=== PATIENT | female | born 2000 | race Asian ===

== ENCOUNTER 2022-06-21 11:50 | Outpatient (CLI) | payer OTHER, SELFPAY | END 2022-06-21 11:51 | disposition home or self-care (01) | PROVIDERS: PCP Family Medicine; Visit Provider Family Medicine | DX: E55.9 Vitamin D deficiency, unspecified (principal) | CPT/HCPCS: 36415; 82306 ==

== ENCOUNTER 2022-06-22 07:52 | Outpatient (CLI) | payer OTHER, SELFPAY ==
[2022-06-25 09:35] LABS: PCP NEGATIVE ng/mL (<25)
[2022-06-29 14:20] LABS: Amphetamines NEGATIVE; Marijuana Metabolites NEGATIVE
[2022-06-29 14:21] LABS: Barbiturates NEGATIVE; Benzodiazepines NEGATIVE
[2022-06-29 14:22] LABS: Cocaine Metabolites NEGATIVE
== END 2022-06-22 07:53 | disposition home or self-care (01) ==
LOC: ANHGOSHLAB 07:53
PROVIDERS: PCP Family Medicine; Visit Provider Family Medicine
DX: Z51.81 Encounter for therapeutic drug level monitoring (principal); F90.1 Attention-deficit hyperactivity disorder, predominantly hyperactive type; Z79.899 Other long term (current) drug therapy
CPT/HCPCS: 80307

== ENCOUNTER 2022-08-17 16:47 | Emergency (ER) | payer OTHER, SELFPAY ==
[2022-08-17 17:05] VITALS: BP 122/65; PULSE 114; RESP 20; TEMP 37.1; O2SAT 100
--- NOTE | 2022-08-17 17:18 | ED.FEMALEGU ---
HPI - Female Genitourinary General Chief complaint: Urogenital-Female Stated complaint: UTI/ABD & BACK PAIN/CHILLS Time Seen by Provider: 08/17/22 17:30 Source: patient and RN notes reviewed Mode of arrival: ambulatory Limitations: no limitations History of Present Illness HPI Narrative: 22-year-old female presents with concern for urinary tract infection with flank pain, abdominal pain, chills. Mother reports she was treated on 07/31 with Macrobid at her primary care doctor's office for urinary tract infection, the culture reveals Macrobid was resistant so she was given a course of Bactrim. Mother reports her symptoms did not completely resolve so she had a urine recheck at her doctor's office within the last several days, and was given another course of Macrobid. The urine culture for that visit is not returned yet. Patient reports she has taken 2 doses of the Macrobid and is feeling worse. She reports she has also had upper respiratory symptoms start such as cough, runny nose and stuffy nose. She contacted her primary doctor who suggested she be seen in urgent care for she denies vomiting, abnormal vaginal discharge, constipation, diarrhea, shortness of breath, fever MD elicited complaint: UTI Related Data Allergies Allergy/AdvReac Type Severity Reaction Status Date / Time latex Allergy Intermediate Hives Verified 08/17/22 17:10 amoxicillin Allergy Unknown Unknown Verified 08/17/22 17:10 buspirone Allergy Unknown Confusion Verified 08/17/22 17:10 Penicillins Allergy Unknown Unknown Verified 08/17/22 17:10 Review of Systems Review of Systems: CONSTITUTIONAL: Reports malaise, chills CARDIOVASCULAR: Denies chest pain, palpitations, or edema. HEENT: Reports runny nose stuffy nose RESPIRATORY: Reports cough. Denies dyspnea. GASTROINTESTINAL: Reports abdominal pain. Denies nausea, vomiting, diarrhea GENITOURINARY: Reports dysuria, frequency, urgency, suprapubic pressure. Reports flank pain. Denies hematuria. SKIN: Denies rash or itching. MUSCULOSKELETAL: Denies back pain or myalgia. All systems reviewed & are unremarkable except as noted in HPI and below PMFSH Past Medical History Medical History Impacted cerumen of both ears Other specific developmental learning difficulties Social History Social History Smoking status: Never smoker Second hand tobacco smoke exposure: No Alcohol intake: never Alcohol use details: OCASSIONALLY Substance use: current Substance use type: marijuana Lack of Transportation: No Lack of Food: Never True Current Housing: I Have Housing Concerned About Future Housing: No Difficulty Paying Gas/Electric Bills: Decline to Answer Difficulty Paying for Meds: No Currently Unemployed: No Education: High School Diploma/GED Difficulty w/ Childcare or Family Care: No Gender identity (if verbalized by the patient): Female Comments At time of signature, agree with nursing past medical, surgical, social and family history. There is no relevant family history pertinent to the presenting complaint Exam Narrative: GENERAL: Nontoxic-appearing and in no acute distress. HEAD: Normocephalic. EYES: PERRLA, conjunctivae clear. NECK: Supple. No lymphadenopathy CHEST: Clear to auscultation. No respiratory distress. HEART: Regular rate and rhythm. ABDOMEN: Soft, nondistended, normal active bowel sounds, no palpable or pulsatile masses, mild left lower quadrant tenderness without guarding. Bilateral CVA tenderness SKIN: Warm, dry, no rash. NEURO: Alert and oriented x3. PSYCH: Normal mood and affect Course Course Emergency Course: Discussed limited diagnostic capability Express Care, offered transfer to emergency department for further evaluation of patient's symptoms. The patient and her mother prefer to not go to the emergency room this time, she prefers t
== END 2022-08-17 17:57 | disposition home or self-care (01) ==
PROVIDERS: Emergency Provider Nurse Practitioner; PCP Family Medicine
DX: N39.0 Urinary tract infection, site not specified (principal); J06.9 Acute upper respiratory infection, unspecified; Z20.822 Contact with and (suspected) exposure to COVID-19
CPT/HCPCS: 81003; 87086; 87426; 87804; 99213; C9803; G0463

== ENCOUNTER 2022-08-21 14:51 | Emergency (ER) | payer OTHER, SELFPAY ==
--- NOTE | ~2022-08-21 | CT_ITS ---
EXAMINATION: CT abdomen pelvis w con INDICATION: Bilateral flank pain TECHNIQUE: Computed tomographic images of the abdomen and pelvis were obtained after the administrati on of 100 cc of Omnipaque 350 intravenous contrast. The dose-length product (DLP) was 363.39 mGy-cm. Automated exposure control and iterative reconstruction technique were employed. COMPARISON: 10/12/2018 FINDINGS: Minimal dependent atelectasis is present in the lung bases. The heart size is normal. The l iver, spleen, pancreas, gallbladder, and adrenal glands are normal. The kidneys are unremarkable. No pathologically enlarged abdominal or pelvic lymph nodes are identified. There is no free intraperiton eal gas or evidence of bowel obstruction. The appendix is normal. IMPRESSION: 1. No CT correlate for the patient's symptoms. Reviewed, dictated and finalized at location F. MOBILE CLUB MEMBERSHIP SALES AGENT
[2022-08-21 14:55] VITALS: BP 136/79; PULSE 86; RESP 16; TEMP 36.9; O2SAT 100
[2022-08-21 15:57] LABS: Appearance Urine Clear (Clear); Bilirubin Urine Negative (Negative); Blood Urine Negative (Negative); Color Urine Yellow (Yellow); Glucose Urine UA Negative (Negative); Ketones Urine Negative (Negative); Leukocyte Esterase Ur 1+ LEU/UL (Negative); Nitrate Urine Negative (Negative); Protein Urine Negative (Negative); Specific Grav Ur >= 1.030 (1.001-1.035); Urobilinogen Urine 0.2 mg/dL (<2.0); pH Urine 5.5 (5.0-9.0)
[2022-08-21 16:08] LABS: RBC Urine 0-2 /hpf (0-2); Squamous Epithelial Cell Urine Few /hpf (Few)
[2022-08-21 16:20] LABS: Add Urine Microscopic? YES
--- NOTE | 2022-08-21 17:42 | ED.FEMALEGU ---
HPI - Female Genitourinary General Chief complaint: Urogenital-Female Stated complaint: back pain - being treated for UTI Time Seen by Provider: 08/21/22 17:12 History of Present Illness HPI Narrative: 22-year-old female history of bipolar presents to the emergency room for evaluation of bilateral flank pain that has been present for 2 days. Patient was seen in urgent care 2 weeks ago diagnosed with urinary tract infection. Was placed on Macrobid at that time. Urine culture shows that she has resistance to Macrobid. Follow-up with her primary care provider several days later, and was placed on Macrobid a second time mistakenly. Patient then was seen at urgent care 2 days ago for dysuria, and was started on Cipro. Urine culture show susceptibility of 0.25. Patient now complaining of bilateral flank pain. Denies fevers or tachycardia. Denies nausea or vomiting. Related Data Allergies Allergy/AdvReac Type Severity Reaction Status Date / Time latex Allergy Intermediate Hives Verified 08/21/22 17:36 amoxicillin Allergy Unknown Unknown Verified 08/21/22 17:36 buspirone Allergy Unknown Confusion Verified 08/21/22 17:36 Penicillins Allergy Unknown Unknown Verified 08/21/22 17:36 Review of Systems Review of Systems: CONSTITUTIONAL: Denies fever, chills, or sweats. EYES: Denies visual changes, redness, or discharge. ENT: Denies rhinorrhea, congestion, sore throat, or otalgia. CARDIOVASCULAR: Denies chest pain, palpitations, or edema. RESPIRATORY: Denies cough or dyspnea. GASTROINTESTINAL: Reports bilateral flank pain GENITOURINARY: Denies dysuria or hematuria. SKIN: Denies rash or itching. MUSCULOSKELETAL: Denies back pain, joint pain, or myalgia. NEUROLOGIC: Denies headache, numbness, dizziness, or weakness. PSYCHIATRIC: Denies anxiety or depression. [facility] Past Medical History Medical History Impacted cerumen of both ears Other specific developmental learning difficulties Social History Social History Smoking status: Never smoker Second hand tobacco smoke exposure: No Alcohol intake: never Alcohol use details: OCASSIONALLY Substance use: current Substance use type: marijuana Lack of Transportation: No Lack of Food: Never True Current Housing: I Have Housing Concerned About Future Housing: No Difficulty Paying Gas/Electric Bills: Decline to Answer Difficulty Paying for Meds: No Currently Unemployed: No Education: High School Diploma/GED Difficulty w/ Childcare or Family Care: No Gender identity (if verbalized by the patient): Female Exam Narrative: GENERAL: Well-appearing, well-nourished, no physical limitations, and in no acute distress. HEAD: Normocephalic, atraumatic. EYES: Conjunctivae normal, PERRLA and EOMI. CHEST: Clear to auscultation. No respiratory distress. No wheezes rales or rhonchi. HEART: Regular rate and rhythm. No murmur heard. Normal peripheral pulses. ABDOMEN: Soft, nontender, nondistended, normal active bowel sounds. : Normal external male/female exam. BACK: Bilateral CVA tenderness EXTREMITIES: Normal range of motion. No edema. No clubbing or cyanosis SKIN: Warm, dry, no rash. No noted wounds NEURO: No focal deficits. Alert and oriented x3. MAEW. CN's II-XI intact bilaterally, normal gait PSYCH: Cooperative. Normal mood and affect. Course Vital Signs Vital signs: Vital Signs Temperature 36.9 C 08/21/22 14:55 Pulse Rate 86 08/21/22 14:55 Respiratory Rate 16 08/21/22 14:55 Blood Pressure 136/79 08/21/22 14:55 Pulse Oximetry 100 08/21/22 14:55 Oxygen Delivery Room Air 08/21/22 14:55 Temperature 36.9 C 08/21/22 14:55 Pulse Rate 86 08/21/22 14:55 Respiratory Rate 16 08/21/22 14:55 Blood Pressure 136/79 08/21/22 14:55 Pulse Oximetry 100 08/21/22 14:55 Oxygen Delivery Room Air 08/21/22 14:55 CARLYN - Fema
[2022-08-21 18:00] LABS: Basophils Absolute Auto 0.1 K/mm3 (0.0-0.1); Eosinophils Absolute Auto 0.1 K/mm3 (0-0.3); Eosinophils Percent Auto 1.8 % (0-4.4); Hemoglobin 13.3 g/dL (12.0-15.0); Immature Granulocyte Absolute 0.02 K/mm3 (0.00-0.031); Immature Granulocyte Percent A 0.3 % (0-0.5); Lymphocytes Absolute Auto 3.25 K/mm3 (0.9-3.2); Lymphocytes Percent Auto 44.2 % (18.3-44.2); Mean Corpuscular HGB Conc 32.4 g/dl (32-36); Mean Corpuscular Hemoglobin 29.4 pg (26-34); Mean Corpuscular Volume 90.7 fl (80-100); Mean Platelet Volume 8.6 fl (7.4-10.4); Monocytes Absolute Auto 0.5 K/mm3 (0.1-0.6); Monocytes Percent Auto 7.1 % (2.6-8.5); Neutrophils Absolute Auto 3.4 K/mm3 (1.3-6.7); Neutrophils Percent Auto 45.6 % (45.5-73.1); Platelet Count Result 309 k/mm3 (150-375); Red Blood Count 4.52 M/mm3 (4.2-5.4); Red Cell Distribution Width 12.4 % (11.5-14.5); White Blood Count 7.4 K/mm3 (4.5-10.0)
[2022-08-21 18:22] LABS: Anion Gap 14 mmol/L (8-16); Blood Urea Nitrogen 15 mg/dL (7-17); Calcium 9.8 mg/dL (8.4-10.2); Carbon Dioxide 24 mmol/L (22-30); Chloride 104 mmol/L (98-107); Estimated Glomerular Filt Rate > 60; Glucose 101 mg/dL (65-110); Sodium 142 mmol/L (137-145)
[2022-08-21] MEDS: SODIUM CHLORIDE 0.9% IV 1,000 ML 999 ML IV CONT (18:24)
== END 2022-08-21 20:00 | disposition home or self-care (01) ==
PROVIDERS: Emergency Medicine; Emergency Provider Nurse Practitioner Family; PCP Family Medicine
DX: N39.0 Urinary tract infection, site not specified (principal)
CPT/HCPCS: 36415; 74177; 80048; 81001; 81025; 83605; 85025; 87086; 96360; 99284; J7030; Q9967

== ENCOUNTER 2022-09-24 12:43 | Outpatient (CLI) | payer OTHER, SELFPAY ==
--- NOTE | ~2022-09-24 | US_ITS ---
Renal-Bladder ultrasound Clinical History: UTI Technique: Real-time sonographic imaging of the kidneys and urinary bladder was performed. Findings: The right kidney measures 9.0 cm in length and the left kidney measures 10.0 cm. There is n o hydronephrosis or renal calculus identified. Renal cortical echogenicity is within normal limits. N o renal mass lesion is identified. The urinary bladder is moderately distended at the time of this exam. No intraluminal echoes are iden tified. No abnormal wall thickening is seen. Impression: Unremarkable ultrasound of the kidneys and urinary bladder. Reviewed, dictated and finalized at location . DESK TECHNICIAN Impression: Unremarkable ultrasound of the kidneys and urinary bladder.
== END 2022-09-24 12:44 | disposition home or self-care (01) ==
PROVIDERS: PCP Family Medicine; Visit Provider Nurse Practitioner
DX: N39.0 Urinary tract infection, site not specified (principal)
CPT/HCPCS: 76775

== ENCOUNTER 2024-01-01 09:20 | Outpatient (CLI) | payer OTHER, SELFPAY ==
--- NOTE | ~2024-01-01 | US_ITS ---
US abdomen limited INDICATION: Abnormal laboratory values PROCEDURE: Realtime right upper abdominal ultrasound. COMPARISON: CT dated 08/21/2022 FINDINGS: The pancreas is normal without focal mass or pancreatic ductal dilation. Liver echotexture is increased, consistent with fatty infiltration. There is normal directional flow in the portal ve in. The gallbladder is normal without stones, gallbladder wall thickening or pericholecystic fluid. Comm on bile duct measures 3 mm. No sonographic Langston's sign. IMPRESSION: 1: Fatty infiltration of the liver. Reviewed, dictated and finalized at location B.
== END 2024-01-01 09:21 | disposition home or self-care (01) ==
LOC: ANHIMG 09:22
PROVIDERS: PCP Family Medicine; Visit Provider Family Medicine
DX: R79.89 Other specified abnormal findings of blood chemistry (principal); K76.0 Fatty (change of) liver, not elsewhere classified
CPT/HCPCS: 76705

== ENCOUNTER 2025-08-20 20:43 | Emergency (ER) | payer OTHER, SELFPAY ==
--- OUTSIDE RECORDS SUMMARY | 2025-03-08 05:30 | XMS_ITS ---
Author Organization [facility] Address [address] [place] [address] Care Team Providers Care Acid Etch Operator Name Role Phone Nay Chen Primary Care Provider REASON FOR VISIT 4 week F/U Social History Sex Assigned At : Social History Observation Description Sex Assigned At Female Encounters Encounter Location Date Provider [address] [place] [address] 03/08/2025 Nay Chen Plan Of Treatment Next Appt Details Provider Name:Nay rowell, 08/24/2025 09:00:00 AM, [address] [place] [address], [place], [address], Progress Notes * Yoanna SHERIDAN MDOB: 0 (25 yo F)Acc No.[id number]:03/08/2025 UNLOCKED PROGRESS NOTE Patient: Yoanna HUYNH Provider: Selvin Chen, DNP, ELEVATOR CONSTRUCTOR, PMHNP- :2000 A ge:24 Y S ex:Female Date:03/08/2025 Address:[address], [facility] Structured Data:Is there a n gagan you would prefer we call you? (Nombre que prefiere usar) : No Subjective: * Chief Complaints: * 1 . 4 week F/U. * Medical History: Objective: * Vitals: Assessment: Plan: * Treatment: * * Electronic signature of Neeta Balderrama , [id number] on 08/20/2025 at 08:45 PM AUTOMOBILE OR TRUCK RENTAL DISPATCHER Sign off status: Pending * Provider: Selvin Chen DNP, ELEVATOR CONSTRUCTOR, PMHNP- Date: 0 03/08/2025 Generated for Printing/Faxing/eTransmitting on: 1 10/20/2024 08:45 PM AUTOMOBILE OR TRUCK RENTAL DISPATCHER
--- OUTSIDE RECORDS SUMMARY | 2025-05-31 05:30 | XMS_ITS ---
Author Organization [facility] Address [address] [place] [address] Care Team Providers Care Show Host Or Hostess Name Role Phone Nay Chen Primary Care Provider REASON FOR VISIT LM to R/S-mlr 2 Month Psych F/U & Med Refill Social History Sex Assigned At : Social History Observation Description Sex Assigned At Female Encounters Encounter Location Date Provider Diagnosis [address] [place] [address] 05/31/2025 Nay Chen Plan Of Treatment Next Appt Details Provider Name:Nay rowell, 08/24/2025 09:00:00 AM, [address] [place] [address] , [place], [address], Progress Notes * Yoanna SHERIDAN MDOB: 0 (25 yo F)Acc No.[id number]:05/31/2025 UNLOCKED PROGRESS NOTE Patient: Yoanna HUYNH Provider: Selvin Chen, DNP, INDUSTRIAL GAS FITTER, PMHNP-BC :2000 A ge:25 Y S ex:Female Date:05/31/2025 Address:[address] [id number] Structured Data:Is there a n gagan you would prefer we call you? (Nombre que prefiere usar) : No Subjective: * Chief Complaints: * 1 . LM to R/S-mlr 2 Month Psych F/U & Med Refill. * Medical History: Objective: * Vitals: Assessment: Plan: * Treatment: * * Electronic signature of Neeta Balderrama , [id number] on 08/20/2025 at 08:47 PM WALL MIRROR DEPARTMENT SUPERVISOR Sign off status: Pending * Provider: Selvin Chen DNP, JAROD, PMHNP- Date: 0 05/31/2025 Generated for Printing/Faxing/eTransmitting on: 1 10/20/2024 08:47 PM WALL MIRROR DEPARTMENT SUPERVISOR
--- OUTSIDE RECORDS SUMMARY | 2025-06-08 02:00 | XMS_ITS ---
Author Organization [facility] Address [address] [place] [address] Care Team Providers Care Dialysis Nurse Name Role Phone Nay Chen Primary Care Provider REASON FOR VISIT r/s from 05/31 Medications Medication SIG (Take, Route, Frequency, Duration) Notes Start Date End Date Status Vitamin D (Ergocalciferol) 60395 UNIT 1 capsule Orally every other week Active Viorele 0.15-0.02/0.01 MG (24/02) 1 tablet Orally Once a day Active hydrOXYzine Pamoate 25 MG 1 capsule Orally three times a day; Duration: 30 days As needed 02/08/2025 Active FLUoxetine HCl 20 MG 1 capsule (total 60 mg) Orally Once a day; Duration: 30 days 04/25/2025 Active FLUoxetine HCl 40 MG 1 capsule (total 60 mg) Orally Once a day; Duration: 7 days Active Methylphenidate HCl ER 20 MG 1 tablet Or ally daily; Duration: 30 days Active hydrOXYzine HCl 10 MG 1 tablet as needed Orally three times a day; Duration: 30 days Active Lurasidone HCl 80 MG 1 tablet in the park kassie with food Orally Once a day; Duration: 7 days Active Social History Sex Assigned At : Social History Observation Description Sex Assigned At Female Encounters Encounter Location Date Provider Diagnosis [facility] [place] [address] [place] [address] 06/08/2025 Nay Chen Plan Of Treatment Next Appt Details Provider Name:Nay rowell, 08/24/2025 09:00:00 AM, [address], [place], [address], Progress Notes * Yoanna SHERIDAN MDOB: 0 (25 yo F)Acc No.[id number]:06/08/2025 UNLOCKED PROGRESS NOTE Patient: Yoanna HUYNH Provider: Selvin Chen DNP, APRN, PMTRUMANP-BC :2000 A ge:25 Y S ex:Female Date:06/08/2025 Address:[address] [place], [place] [address], [facility] Structured Data:Is there a n gagan you would prefer we call you? (Nombre que prefiere usar) : No Check In:08:08 AM COMMUNITY DEVELOPMENT OFFICER Subjective: * Chief Complaints: * 1 . R/s from 05/31. * Medical History: * Medications: T aking Methylphenidate HCl ER 20 MG Tablet Extended Release 1 tablet Orally daily , Taking hydrOXYzine HCl 10 MG Tablet 1 tablet as needed Orally three times a day , Taking Vitamin D (Ergocalciferol) 29740 UNIT Capsule 1 capsule Orally every other week , Taking Viorele 0.15-0.02/0.01 MG (24/02) Tablet 1 tablet Orally Once a day , Taking hydrOXYzine Pamoate 25 MG Capsule 1 capsule Orally three times a day As needed, Taking FLUoxetine HCl 20 MG Capsule 1 capsule (total 60 mg) Orally Once a day , Taking FLUoxetine HCl 40 MG Capsule 1 capsule (total 60 mg) Orally Once a day , Taking Lurasidone HCl 80 MG Tablet 1 tablet in the evening with food Orally Once a day Objective: * Vitals: Assessment: Plan: * Treatment: * * Electronic signature of Neeta Balderrama , [id number] on 08/20/2025 at 08:46 PM COMMUNITY DEVELOPMENT OFFICER Sign off status: Pending * Provider: Selvin Chen DNP, APRN, [facility] Date: 0 06/08/2025 Generated for Printing/Faxing/eTransmitting on: 10/20/2024 08:46 PM COMMUNITY DEVELOPMENT OFFICER
--- OUTSIDE RECORDS SUMMARY | 2025-08-19 19:15 | XMS_ITS | Encounter Summary ---
Author Organization [facility] Healthcare Address [address] [place] [address] Care Team Providers Care Physical Therapist Assistant Name Role Phone Alejandrina Hernandez MD Primary Care Provider + Reason for Visit * Reason Comments blisters Pain and blisters on hands and feet Encounter Details Date Type Department Care Team (Late st Contact Info) Description 08/19/2025 7:15 PM ELASTIC ATTACHER OVERLOCK Office Visit [facility] at [address] [address] Adeline Cisneros, [place] [address] [place] [address] [address] [place] [address] Rash and nonspecific skin eruption (Primary Dx) Social History Tobacco Use Types Packs/Day Years Used Date Smoking Tobacco: Never Assessed Comments Unknown Sex and Gender Information Value Date Recorded Sex Assigned at Not on file Legal Sex Female 7:33 PM ELASTIC ATTACHER OVERLOCK Gender Identity Not on file Sexual Orientation Not on file documented as of this encounter Last Filed Vital Signs Vital Sign Reading Time Taken Comments Blood Pressure 122/84 08/19/2025 5:23 PM ELASTIC ATTACHER OVERLOCK Pulse 76 08/19/2025 5:23 PM ELASTIC ATTACHER OVERLOCK Temperature 36.8 C (98.2 F) 08/19/2025 5:23 PM ELASTIC ATTACHER OVERLOCK Respiratory Rate 20 08/19/2025 5:23 PM ELASTIC ATTACHER OVERLOCK Oxygen Saturation 99% 08/19/2025 5:23 PM ELASTIC ATTACHER OVERLOCK Inhaled Oxygen Concentration - - Weight 64.9 kg (143 lb 1.6 oz) 08/19/2025 5:23 P M ELASTIC ATTACHER OVERLOCK Height - - Body Mass Index - - documented in this encounter Functional Status documented as of this encounter Patient Instructions * Patient Instructions* Adeline Cisneros NP - 08/19/2025 7:15 PM ELASTIC ATTACHER OVERLOCK If you have no improvement or worsening of your symptoms, please follow up with your Primary Care Provider, [facility] and or Emergency Room. I strive to provide you with EXCELLENT service. You may receive a survey after your visit today. If you cannot rate your experience as EXCELLENT, please let us know how we can improve and better meet your needs. Thank you for choosing [facility]! It was my pleasure to see you today, I hope you feel better soon! Adeline Cisneros LASTING MACHINE OPERATOR TIC ATTACHER OVERLOCK * Attachments The following attachments cannot be sent through Care Everywhere. * Acute Rash (AfterCare(R) Instructions(ER/ED)) (Persian) documented in this encounter Ordered Prescriptions Prescription Sig Dispense Quantity Refills Last Filled Start Date End Date triamcinolone (KENALOG) 0.1 % creamIndications:R ramez and nonspecific skin eruption Apply to affected area 1-2 times daily as needed. Avoid face and groin. 30 g 08/19/2025 documented in this encounter Plan of Treatment Not on file documented as of this encounter Visit Diagnoses Diagnosis Rash and nonspecific skin eruption- Primary Rash and other nonspecific skin eruption documented in this encounter Historical Medications * This list may reflect changes made after this encounter. FLUoxetine (PROzac) 40 mg capsule Take 1 capsule (40 mg total) by mouth daily 08/08/2025 FLUoxetine (PROzac) 20 mg capsule Take 1 capsule (20 mg total) by mouth daily 08/10/2025 hydrOXYzine (ATARAX) 10 mg tablet Take 1 tablet (10 mg total) by mouth 3 (three) times a day as needed 01/24/2024 lurasidone (LATUDA) 80 mg tablet TAKE 1 TABLET BY MOUTH DAILY IN THE EVENING WITH FOOD 08/09/2025 methylphenidate ER (METADATE ER) 20 mg CR tablet Take 1 tablet (20 mg total) by mouth every morning sertraline (ZOLOFT) 100 mg tablet Take 1.5 tablets (150 mg total) by mouth daily 07/24/2023 ergocalciferol (VITAMIN D) 50,000 unit capsule 08/01/2023 Volnea, 28, 0.15-0.02 mgx21 /0.01 mg x 5 per tablet Take 1 tablet by mouth daily ARIPiprazole (ABILIFY) 5 mg tablet 2 tablets (10 mg total) 05/28/2023 added in this encounter Care Teams Physical Therapist Assistant Relationship Specialty Start Date End Date Alejandrina Hernandez MD [facility] [address] [place] [id number] PCP - General Family Medicine 08/19/25 documented as of this encounter
--- OUTSIDE RECORDS SUMMARY | 2025-08-20 20:46 | XMS_ITS | Patient Health Record ---
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 medications & other aspects of the treatment program. Agrees to return sooner if symptoms worsen or suicidal or homicidal ideations occur. Labs monitored by PCP. 12/08/2024 Medication management (ICD-10 - Z79.899) May self-administer medications or be administered own oral medications per [place] protocols. Provided informed consent with understanding of side effects, adverse effects, risks and benefits as well as alternative treatments as previously discussed and with the above recommended medications & other aspects of the treatment program. Agrees to return sooner if symptoms worsen or suicidal or homicidal ideations occur. Labs monitored by PCP. 01/04/2025 Medication management (ICD-10 - Z79.899) May self-administer medications or be administered own oral medications per [place] protocols. Provided informed consent with understanding of side effects, adverse effects, risks and benefits as well as alternative treatments as previously discussed and with the above recommended medications & other aspects of the treatment program. Agrees to return sooner if symptoms worsen or suicidal or homicidal ideations occur. Labs monitored by PCP. 12/21/2024 Medication management (ICD-10 - Z79.899) May self-administer medications or be administered own oral medications per [place] protocols. Provided informed consent with understanding of side effects, adverse effects, risks and benefits as well as alternative treatments as previously discussed and with the above recommended medications & other aspects of the treatment program. Agrees to return sooner if symptoms worsen or suicidal or homicidal ideations occur. Labs monitored by PCP. 01/18/2025 Bruxism (ICD-10 - F45.8) 01/28/2025 Bruxism (ICD-10 - F45.8) 01/28/2025 Medication management (ICD-10 - Z79.899) May self-administer medications or be administered own oral medications per [place] protocols. Provided informed consent with understanding of side effects, adverse effects, risks and benefits as well as alternative treatments as previously discussed and with the above recommended medications & other aspects of the treatment program. Agrees to return sooner if symptoms worsen or suicidal or homicidal ideations occur. Labs monitored by PCP. 01/18/2025 Medication management (ICD-10 - Z79.899) May self-administer medications or be administered own oral medications per [place] protocols. Provided informed consent with understanding of side effects, adverse effects, risks and benefits as well as alternative treatments as previously discussed and with the above recommended medications & other aspects of the treatment program. Agrees to return sooner if symptoms worsen or suicidal or homicidal ideations occur. Labs monitored by PCP. Plan Of Treatment Next Appt Details Provider Name:Nay Ange Mcdonough ar, 08/24/2025 09:00:00 AM, [address] [facility] [address], [place], [address], Insurance Providers Payer Name Payer Address Payer Phone Subscriber Number Group Number Insured Name Patient Relationship to Insured Coverage Start Date Coverage End Date [place] [employer] [facility] Att Claims Department [address] [place] [address] [phone] [id number] Yoanna Garcia Self - patient is the insured 4 [employer] Attn Claims Department [address] [place] [address] [phone] [id number] Yoanna Garcia Self - patient is the insured 4 Medical (General) History Medical History History ICD Code pre-diabetes mildly elevated liver enzymes Bruxism (resolved 03/10/2025) undefined Surgical History Surgery Date(Month/Year) None Hospitalization History Reason Date(Month/Year) None
--- OUTSIDE RECORDS SUMMARY | 2025-08-20 20:47 | XMS_ITS | Clinical Summary ---
Author Organization [facility] Address [address] [place] [address] Phone Care Team Providers Care Puller Over Name Role Phone Alejandrina Hernandez MD Primary Care Provider [phone] Christopher Cha APRN, ACCOUNT SERVICES SPECIALIST Unavailable [phone] Allergies Active Allergy Reactions Criticality Noted Date Comments Penicillins Hives 08/19/2023 Medications ARIPiprazole (ABILIFY) 5 MG Tablet 10 mg. 05/28/2023 Active Viorele 0.15-0.02/0.01 MG (24/02) Tablet Take 1 Tablet by mouth daily. 07/22/2023 Active ergocalciferol (VITAMIN D) 96891 UNIT Capsule 08/01/2023 Active methylphenidate (METADATE ER) 20 MG Tablet Controlled Release Take 20 mg by mouth 2 times daily. 07/22/2023 Active sertraline (ZOLOFT) 100 MG Tablet TAKE 1 AND 1/2 TABLETS BY MOUTH DAILY 07/24/2023 Active PreviDent 5000 Booster Plus 1.1 % Paste BRUSH TEETH DIRECTED BY DOCTOR 07/11/2023 Active hydrOXYzine (ATARAX) 10 MG Tablet TAKE 1 TABLET BY MOUTH THREE TIMES DAILY NEEDED 01/24/2024 Active Social History Tobacco Use Types Packs/Day Years Used Date Smoking Tobacco: Never Smokeless Tobacco: Never Tobacco Cessation:Counseling Given: Not Answered Alcohol Use Standard Drinks/Week Comments Never 0 (1 standard drink = 0.6 oz pur e alcohol) Sexually Active Control Partners Comments Not Currently Comments No Sex and Gender Information Value Date Recorded Sex Assigned at Not on file Legal Sex Female 2:53 PM CDT Gender Identity Not on file Sexual Orientation Not on file Last Filed Vital Signs Vital Sign Reading Time Taken Comments Blood Pressure 119/87 10/13/2024 2:29 PM HVAC MANAGER Pulse 114 10/13/2024 2:29 PM HVAC MANAGER Temperature 36.8 C (98.2 F) 03/10/2024 1:11 PM CDT Respiratory Rate 16 10/13/2024 2:29 PM HVAC MANAGER Oxygen Saturation 98% 10/13/2024 2:29 PM HVAC MANAGER Inhaled Oxygen Concentration - - Weight 78.3 kg (172 lb 9.6 oz) 10/13/2024 2:29 P M HVAC MANAGER Height 149.9 cm (4' 11) 10/13/2024 2:29 PM HVAC MANAGER Body Mass Index 34.86 10/13/2024 2:29 PM HVAC MANAGER Plan of Treatment Health Maintenance Due Date Last Done Comments Hepatitis C Virus (HCV) Screening 2000 TdaP Immunization 2000 Human Papillomavirus (HPV) Immunization (1 - 3-dose series) 2015 Hepatitis B Immunization (1 of 3 - 19+ 3-dose series) 2019 Pap Smear 2021 Influenza Immunization (#1) 2025 SARS-COV-2 Immunization (2024- season) 2025 Respiratory Syncytial Virus (RSV) Immunization (Adult) (1 - 1-dose 75+ series) 2075 Meningococcal Immunization (ACWY) Aged Out No longer eligible based on patient's age to complete this topic Pneumococcal Immunization Combined Aged Out No longer eligible based on patient's age to complete this topic Rotavirus Immunization Aged Out No lo nger eligible based on patient's age to complete this topic Insurance [address], [id number] [id number] MEDICAID [employer] Care Teams Puller Over Relationship Specialty Start Date End Date Alejandrina Hernandez MD [facility] [address] [place] [address] PCP - General Family Medicine 08/19/23 Christopher Cha, SPACE CONTROL SUPERVISOR, ACCOUNT SERVICES SPECIALIST [address] [place] [address] Nurse Practitioner Advanced Practice Nurse 08/19/23
--- OUTSIDE RECORDS SUMMARY | 2025-08-20 20:47 | XMS_ITS | Clinical Summary ---
Author Organization [facility] [address] Address [address] [place] [address] Care Team Providers Care Customer Support Consultant Name Role Phone Alejandrina Hernandez MD Primary Care Provider + Allergies Active Allergy Reactions Criticality Noted Date Comments Penicillins Hives Medium 08/19/2023 Medications ARIPiprazole (ABILIFY) 5 mg tablet 2 tablets (10 mg total) 3 Active Volnea, 28, 0.15-0.02 mgx21 /0.01 mg x 5 per tablet Take 1 tablet by mouth daily Active ergocalciferol (VITAMIN D) 50,000 unit capsule 3 Active sertraline (ZOLOFT) 100 mg tablet Take 1.5 tablets (150 mg total) by mouth daily 3 Active methylphenidate ER (METADATE ER) 20 mg CR tablet Take 1 tablet (20 mg total) by mouth every morning Active lurasidone (LATUDA) 80 mg tablet TAKE 1 TABLET BY MOUTH DAILY IN THE EVENING WITH FOOD 5 Active hydrOXYzine (ATARAX) 10 mg tablet Take 1 tablet (10 mg total) by mouth 3 (three) times a day as needed 4 Active FLUoxetine (PROzac) 20 mg capsule Take 1 capsule (20 mg total) by mouth daily 5 Active FLUoxetine (PROzac) 40 mg capsule Take 1 capsule (40 mg total) by mouth daily 5 Active triamcinolone (KENALOG) 0.1 % creamIndications :Rash and nonspecific skin eruption Apply to affected area 1-2 times daily as needed. Avoid face and groin. 30 g 5 08/19/20 26 Active Active Problems No known active problems Encounters Date Type Department Care Team Description 08/19/2025 7:15 PM WELT TRIMMING MACHINE OPERATOR Office Visit [facility] at [address] [address] Adeline Cisneros NP Rash and nonspecific skin eruption (Primary Dx) from Last 3 Months Social History Tobacco Use Types Packs/Day Years Used Date Smoking Tobacco: Never Assessed Comments Unknown Sex and Gender Information Value Date Recorded Sex Assigned at Not on file Legal Sex Female 7:33 PM WELT TRIMMING MACHINE OPERATOR Gender Identity Not on file Sexual Orientation Not on file Last Filed Vital Signs Vital Sign Reading Time Taken Comments Blood Pressure 122/84 08/19/2025 5:23 PM WELT TRIMMING MACHINE OPERATOR Pulse 76 08/19/2025 5:23 PM WELT TRIMMING MACHINE OPERATOR Temperature 36.8 C (98.2 F) 08/19/2025 5:23 PM WELT TRIMMING MACHINE OPERATOR Respiratory Rate 20 08/19/2025 5:23 PM WELT TRIMMING MACHINE OPERATOR Oxygen Saturation 99% 08/19/2025 5:23 PM WELT TRIMMING MACHINE OPERATOR Inhaled Oxygen Concentration - - Weight 64.9 kg (143 lb 1.6 oz) 08/19/2025 5:23 P M WELT TRIMMING MACHINE OPERATOR Height - - Body Mass Index - - Plan of Treatment Health Maintenance Due Date Last Done Comments Cervical Cancer Screening 2000 Depression Screening 2000 Hepatitis C Screening 2000 DTaP/Tdap/Td Vaccine (1 - Tdap) 2011 Varicella Vaccines (1 of 2 - 13+ 2-dose series) 2013 HPV Vaccines (1 - 3-dose series) 2015 Hepatitis B Screening 2018 Regular Well Visit/Exam 18-64 2018 Influenza Vaccine (#1) 2025 Pneumococcal vaccine <65 Aged Out No longer eligible based on patient's age to complete this topic Insurance [facility] Care Teams Customer Support Consultant Relationship Specialty Start Date End Date Alejandrina Hernandez MD [address] [facility] [address] [address] [place] [address] [phone] PCP - General Family Medicine 08/19/25
--- OUTSIDE RECORDS SUMMARY | 2025-08-20 20:47 | XMS_ITS | Patient Health Record ---
Author Organization [facility] Address [address] [place] [address] Care Team Providers Care Server Programmer Name Role Phone David Amaya Unavailable [phone] Reason For Referral No Information Medications Medication SIG (Take, Route, Frequency, Duration) Notes Start Date End Date Status Cholecalciferol 1.25 MG (50586 UT) Capsule Oral 03/28/2022 Active ARIPiprazole 5 MG Tablet Oral 03/28/2022 Active Methylphenidate HCl ER 20 MG Tablet Extended Release Oral 03/28/2022 Acti ve Ergocalciferol 1.25 MG (5000 0 UT) Capsule Oral 03/28/2022 Active Zoloft 100 MG Tablet Oral 03/28/2022 Active Cyclobenzaprine HCl 5 MG Tablet Oral 03/28/2022 Active Sertraline HCl 100 MG Tablet Oral 03/28/2022 Active Viorele 0.15-0.02/0.01 MG (/5) Tablet Oral 03/28/2022 Active Immunizations Vaccine Route Administration Date Status Comme nts Meningococcal MCV4P Unknown 04/08/2018 Administered Novel [id number], preservative free Unknown 10/09/2018 Administered Pfizer Biontech Covid-19 Vac cine 2nd dose Unknown 01/03/2021 Administered Pfizer Biontech Covid-19 Vac cine 2nd dose Unknown 01/26/2021 Administered Pfizer Biontech Covid-19 Vac cine 2nd dose Unknown 10/10/2021 Administered Social History Social History Additional Details Category Social Info Options Details Migrated Social History Migrated Social History Alcohol Intake: None 01/03/2022,Tobacco Years: Never smoker 05/26/2021 Plan Of Treatment No Information Insurance Providers Payer Name Payer Address Payer Phone Subscriber Number Group Number Insured Name Patient Relationship to Insured Coverage Start Date Coverage End Date [facility] [address] [place] [address] [id number] JILLIAN SHERIDAN Child - Insured has Financial Responsibility
[2025-08-20 20:56] VITALS: BP 127/73; PULSE 74; RESP 14; TEMP 36.8; O2SAT 100
--- NOTE | 2025-08-20 22:00 | ED.GENADULT ---
HPI - General Adult General Chief complaint: Unspecified Stated complaint: RASH Time Seen by Provider: 08/20/25 20:48 History of Present Illness HPI narrative: Patient is a 25-year-old female who presents to the ER with a rash to her hands and feet. She reports approximately 1 week ago she started feeling feverish and ill. Patient reports on Saturday she started noticing a rash to her hands and feet. She reports rash is so painful that it hurts to stand. Patient denies any sores in her mouth, difficulty swallowing, excessive swelling, drainage from the sites. She endorses a history of mental health issues for which she is medicated. Related Data Home Medications ?Medication ?Instructions ?Recorded ?Confirmed ?Last Taken ?Type loratadine 10 mg tablet (Claritin) 10 mg PO DAILY 06/16/24 07/14/25 Unknown History hydroxyzine HCl 10 mg tablet 10 mg PO TID PRN 12/16/24 07/14/25 Unknown History fluoxetine 20 mg capsule 20 mg PO 02/04/25 07/14/25 Unknown History fluoxetine 40 mg capsule 40 mg PO 06/16/25 07/14/25 Unknown History hydroxyzine pamoate 25 mg capsule 25 mg PO 06/16/25 07/14/25 Unknown History lurasidone 80 mg tablet 80 mg PO 06/16/25 07/14/25 Unknown History Allergies Allergy/AdvReac Type Severity Reaction Status Date / Time amoxicillin Allergy Unknown Unknown Verified 08/20/25 22:21 buspirone Allergy Unknown Confusion Verified 08/20/25 22:21 Penicillins Allergy Unknown Unknown Verified 08/20/25 22:21 metformin AdvReac Severe Diarrhea Verified 08/20/25 22:21 prednisone AdvReac Mild Itching Verified 08/20/25 22:21 Review of Systems Review of Systems: All systems reviewed & are unremarkable except as noted in HPI and below PMFSH Past Medical History Medical History Hx of chlamydia infection Hematuria Other specific developmental learning difficulties Social History Social History Smoking status: Never smoker Second hand tobacco smoke exposure: No Alcohol intake: current Drinks per week: 2 Alcohol use details: weekends Substance use: former Substance use type: marijuana Do You Feel Safe in your Home?: Yes Lack of Transportation: No Lack of Food: Never True Current Housing: I Have Housing Concerned About Future Housing: No Difficulty Paying Gas/Electric Bills: Decline to Answer Difficulty Paying for Meds: No Currently Unemployed: No Education: High School Diploma/GED Difficulty w/ Childcare or Family Care: No Living arrangements: with family Occupation/Education: occupation Gender identity (if verbalized by the patient): Female Exam Narrative: GENERAL: Well appearing, well-nourished, non-toxic, in no acute distress. HEAD: Normocephalic, atraumatic. 4-5 red lesions to the roof of pt's mouth. NECK: Supple. No adenopathy, no masses. RESPIRATORY: Airway patent, respirations nonlabored. Clear to auscultation bilaterally, no rales, rhonchi, wheezing. CARDIOVASCULAR: Regular rate and rhythm without murmurs, rubs, or gallops. Peripheral pulses 2+ and equal bilaterally. ABDOMINAL: Soft, nontender, nondistended, no hepatosplenomegaly. Normoactive BS. MUSCULOSKELETAL: Moves all extremities. Strength/ROM intact without gross deformities. SKIN: Warm, dry, normal color. Clear fluid-filled lesions to pt's palmar hands, plantar feet/toes. NEURO: A&O X3. Speech clear. Cranial nerves II-XII intact. No ataxic movements. PSYCHIATRIC: Appropriate mood and affect. Normal interaction. Course Vital Signs Vital signs: Vital Signs Temperature 36.8 C 08/20/25 20:56 Pulse Rate 74 08/20/25 20:56 Respiratory Rate 14 08/20/25 20:56 Blood Pressure 127/73 08/20/25 20:56 Pulse Oximetry 100 08/20/25 20:56 Oxygen Delivery Room Air 08/20/25 20:56 Temperature 36.8 C 08/20/25 20:56 Pulse Rate 74 08/20/25 20:56 Respiratory Rate 14 08/20/25 20:56 Blood Pressure 127/73 08/20/25 20:56 Pulse Oximetry 100 08/20/25 20:56 Oxygen Delivery Room Air 08/20/25 20:56 Medical Decision Making MDM Narrative Medical decision making narrative: Patient is a 25-year-old female who presents to the ER with a rash to her hands and feet. She reports approximately 1 week ago she started feeling feverish and ill. Patient reports on Saturday she started noticing a rash to her hands and feet. She reports rash is so painful that it hurts to stand. Patient denies any sores in her mouth, difficulty swallowing, excessive swelling, drainage from the sites. She endorses a history of mental health issues for which she is medicated. Pt has no history of eczema and syphilis. Patient Education/Shared MDM: Results of examination shared with patient and her mother. Patient reports she has been unable to tolerate oral prednisone in the past (she developed a rash), so she will be given a shot of Decadron here in the ER. She will also be given a dose of [place] here in the ER to help with pain control. Patient strongly advised to maintain hydration status upon discharge and follow-up with her PCP as needed for re-evaluation and treatment. If pt starts experiencing mouth pain she was advised to mix equal parts liquid Benadryl and Maalox, then swish and spit. She will not be discharged home with any new prescriptions, but was advised to take Tylenol/Ibuprofen together for pain control. Pt can also use the steroid cream she was prescribed at urgent care. Strict return precautions provided. Patient verbalized understanding and is in agreement with plan. Vital signs stable at time of discharge. All questions answered. Differential Diagnosis Differential Diagnosis: syphilis, scabies, [id number] disease, contact dermatitis Vital Signs Vital Signs: Vital Signs Temperature 36.8 C 08/20/25 20:56 Pulse Rate 74 08/20/25 20:56 Respiratory Rate 14 08/20/25 20:56 Blood Pressure 127/73 08/20/25 20:56 Pulse Oximetry 100 08/20/25 20:56 Oxygen Delivery Room Air 08/20/25 20:56 Temperature 36.8 C 08/20/25 20:56 Pulse Rate 74 08/20/25 20:56 Respiratory Rate 14 08/20/25 20:56 Blood Pressure 127/73 08/20/25 20:56 Pulse Oximetry 100 08/20/25 20:56 Oxygen Delivery Room Air 08/20/25 20:56 Discharge Plan Discharge Clinical Impression: Hand, foot and mouth disease, Rash of both hands, Rash of both feet, Pain in both feet Patient Disposition: Home Condition: Stable Instructions: Antibiotic Form, Hand, Foot, and Mouth Disease (ED) Additional Instructions: Please return to the ER with any worsening symptoms. Follow-up with primary care provider, if needed, for further evaluation and treatment. Take all medications as prescribed, including regularly scheduled medications. You may take Tylenol and/or ibuprofen for pain control at home. If your mouth starts to hurt, you may mix equal parts liquid Benadryl and Maalox, swish it in your mouth, then spit it out. Remember to drink lots of water. Patient Language: Kosovan Prescriptions: No Action loratadine [Claritin] 10 mg tablet 10 mg PO DAILY fluoxetine 40 mg capsule 40 mg PO hydroxyzine pamoate 25 mg capsule 25 mg PO lurasidone 80 mg tablet 80 mg PO hydroxyzine HCl 10 mg tablet 10 mg PO TID PRN fluoxetine 20 mg capsule 20 mg PO methylphenidate HCl [Metadate ER] 20 mg tablet extended release 20 mg PO BID Qty: 60 0RF Rx Instructions: MARCH desog-e.estradiol/e.estradiol [Viorele (28)] 0.15-0.02 mgx21 /0.01 mg x 5 tablet 1 tablet PO DAILY Qty: 84 1RF Follow-up/Referrals: Alejandrina Hernandez MD [Primary Care Provider, Family Practice] Stand Alone Forms: Work/School Release IP Time of Disposition: 22:35
[2025-08-20] MEDS: HYDROcodone/acetaminophen (*CRX) 5-325 MG TABLET 1 TAB PO (22:08)
[2025-08-20] MEDS: dexAMETHasone SOD PHOS INJ 10 MG/ML 1 ML VIAL IM (22:09)
[2025-08-20 22:50] VITALS: BP 129/93; PULSE 70; RESP 12; O2SAT 100
== END 2025-08-20 22:42 | disposition home or self-care (01) ==
PROVIDERS: Emergency Provider Registered Nurse; PCP Family Medicine
DX: B08.4 Enteroviral vesicular stomatitis with exanthem (principal)
CPT/HCPCS: 96372; 99283; A9270; J1100